=== PATIENT | female | born 1990 | race Caucasian/White ===

== ENCOUNTER 2024-07-02 01:42 | Emergency (ER) | payer OTHER, SELFPAY ==
[2024-07-02 02:32] LABS: % Basophils 0.4 % (0-2); % Eosinophils 0.6 % (0-6); % Immature Granulocytes 0.5 % (0-0.5); % Monocytes 6.1 % (1.7-9.3); % Neutrophils 87.4 % (42.2-75.2); Absolute Basophils 0.1 10^3/uL (0-0.2); Absolute Eosinophils 0.1 10^3/uL (0-0.7); Absolute Immature Granulocytes 0.1 10^3/uL (0-0.05); Absolute Lymphocytes 0.8 10^3/uL (1.2-3.4); Absolute Neutrophils 13.7 10^3/uL (1.4-6.5); Hematocrit 42.9 % (37.0-47.0); Hemoglobin 14.5 g/dL (12.0-16.0); Mean Corp Hgb Conc. 33.8 g/dL (33.0-37.0); Mean Corpuscular Hgb 27.4 pg (27.0-31.0); Mean Corpuscular Volume 81.1 fL (81.0-99.0); Mean Platelet Volume 10.5 fL (7.4-10.4); Nucleated Red Blood Cells % 0 %; Platelet Count 294 10^3/uL (130-400); Red Blood Cell Count 5.29 10^6/uL (4.20-5.40); Red Cell Dist. Width 13.5 % (11.5-14.5); White Blood Cell Count 15.7 10^3/uL (4.8-10.8)
[2024-07-02 02:34] LABS: HCG, Serum Qualitative Screen Negative
--- NOTE | 2024-07-02 02:39 | DOWNTIME ---
There was a [employer] Preparation Analyst Downtime on 07/02/2024 from 0100 to 07/02/2024 at 0205 . Downtime documentation of patient's care, including medication administrations, has been reconciled in the electronic record per guidelines. Refer to the
patient's paper chart under the miscellaneous tab to see printed paper medication records and downtime forms.
--- NOTE | 2024-07-02 02:40 | ED.GENMED ---
History of Present Illness
<Hi Payne, DO - Last Filed: 07/02/24 02:41>
General
Chief Complaint: Abdominal Pain
Source: patient
Exam Limitations: none
History of Present Illness
History of Present Illness:
See MDM
Past History
<Hi Payne, DO - Last Filed: 07/02/24 02:41>
Past History
ED Past Medical History: Other (PCOS, endometriosis)
ED Past Surgical History:
Social History
Tobacco: Non-smoker
Alcohol: Occasional
Drug: None
Personal:
Living: with family
Phy Exam
<Hi Payne, DO - Last Filed: 07/02/24 02:41>
Physical Exam
Physical Exam:
See MDM
Course
<Hi Payne, DO - Last Filed: 07/02/24 02:41>
Orders/Labs/Results
Orders:
Orders
07/02/24 01:45
Complete Blood Count/With Diff Urgent
Comprehensive Metabolic Panel Urgent
HCG, Serum Qualitative Screen Urgent
Lipase Urgent
07/02/24 02:40
US Abdomen Complete/Upper Urgent
Comment:
Reason For Exam: RUQ pain
Abnormal Lab Results
07/02/24
01:45
WBC 15.7 H 10^3/uL
(4.8-10.8)
MPV 10.5 H fL
(7.4-10.4)
Abs Immat Gran (auto) 0.1 H 10^3/uL
(0-0.05)
Absolute Neuts (auto) 13.7 H 10^3/uL
(1.4-6.5)
Absolute Lymphs (auto) 0.8 L 10^3/uL
(1.2-3.4)
Absolute Monos (auto) 1.0 H 10^3/uL
(0.1-0.6)
Neutrophils % 87.4 H %
(42.2-75.2)
Lymphocytes % 5.0 L %
(20.5-51.1)
Glucose 139 H mg/dl
(70-99)
07/02/24 01:45
07/02/24 01:45
Vital Signs
Initial and Last Documented VS:
Initial Vital Signs
Temp Pulse Resp BP Pulse Ox
98.0 F 84 16 114/70 100
07/02/24 02:49 07/02/24 02:49 07/02/24 02:49 07/02/24 02:49 07/02/24 02:49
Last Documented Vital Signs
Temp Pulse Resp BP Pulse Ox
98.0 F 84 16 114/70 100
07/02/24 02:49 07/02/24 02:49 07/02/24 02:49 07/02/24 02:49 07/02/24 02:49
Jairlt;Ventura Saxena, DO - Last Filed: 07/02/24 03:33>
Orders/Labs/Results
Orders:
Orders
07/02/24 01:45
Complete Blood Count/With Diff Urgent
Comprehensive Metabolic Panel Urgent
HCG, Serum Qualitative Screen Urgent
Lipase Urgent
07/02/24 02:40
US Abdomen Complete/Upper Urgent
Comment:
Reason For Exam: RUQ pain
Abnormal Lab Results
07/02/24
01:45
WBC 15.7 H 10^3/uL
(4.8-10.8)
MPV 10.5 H fL
(7.4-10.4)
Abs Immat Gran (auto) 0.1 H 10^3/uL
(0-0.05)
Absolute Neuts (auto) 13.7 H 10^3/uL
(1.4-6.5)
Absolute Lymphs (auto) 0.8 L 10^3/uL
(1.2-3.4)
Absolute Monos (auto) 1.0 H 10^3/uL
(0.1-0.6)
Neutrophils % 87.4 H %
(42.2-75.2)
Lymphocytes % 5.0 L %
(20.5-51.1)
Glucose 139 H mg/dl
(70-99)
07/02/24 01:45
07/02/24 01:45
Vital Signs
Initial and Last Documented VS:
Initial Vital Signs
Temp Pulse Resp BP Pulse Ox
98.0 F 84 16 114/70 100
07/02/24 02:49 07/02/24 02:49 07/02/24 02:49 07/02/24 02:49 07/02/24 02:49
Last Documented Vital Signs
Temp Pulse Resp BP Pulse Ox
98.0 F 84 16 114/70 100
07/02/24 02:49 07/02/24 02:49 07/02/24 02:49 07/02/24 02:49 07/02/24 02:49
<Hi Pyane, DO - Last Filed: 07/02/24 02:41>
MDM/Problems Addressed
Differential Diagnosis Includes:
HPI and MDM Narrative:
34 F presenting with RUQ abd pain.� Pt states she ate fast food at 7 PM and has since been dealing with worsening about pain and vomiting.� She states she was recently evaluated for similar symptoms and diagnosed with gallstones
On arrival, pt appears uncomfortable and has point tenderness to RUQ.� Given her history, will obtain RUQ US.� Pt given toradol, IVF and zofran
Physical exam
General: Mildly uncomfortable
HEENT: protecting airway
Neck: appears supple
CV: No evidence of cyanosis
Resp: No accessory muscle use
Abd: Non-distended.� Point tenderness to RUQ
Extremities: No deformities
Neuro: alert
Psych: Mildly anxious
Skin: Intact
Problems Addressed including Acute and Chronic Conditions affecting care:
1.� RUQ
Acuity:� acute
Prognosis: stable
Details: Given hx, will obtain RUQ looking for gallbladder pathology
2.� [ ]
Acuity:� acute
Prognosis: stable
Details:
3.� [ ]
Acuity:� acute
Prognosis: stable
Details:
4.� [ ]
Acuity:� acute
Prognosis: stable
Details:
5.� [ ]
Acuity:�
Prognosis:
Details:
Updates
Differential Diagnosis (but not limited to): Acute calculous cholecystitis, symptomatic cholelithiasis, pancreatitis
Testing considered: CT A/P
Drug therapy (if applicable): OTC meds, please see d/c instruction regarding Rx drugs
�����
Amount and/or Complexity of Data Reviewed
Clinical info obtained from: Patient
External data reviewed: N/A
Labs I independently reviewed (but not limited to): Mild leukocytosis
���������
Radiology:� N/A
Pulse Ox: not hypoxic
EKG independently reviewed: N/A
Automotive Warranty Administrator:� N/A
Critical Care:� N/A
Risk of Complication:
Social Determinants of health:� Good social support
Discussed with other providers:� N/A
Escalation of Care includes Admit/Obs:� After being observed in the Emergency Department,� pt stable for discharge.
Occasional wrong word or 'sound a like' substitutions may have occurred due to the inherent limitations of voice recognition software.� Read the chart carefully and recognize, using context, where substitutions have occurred.
<Ventura Saxena, DO - Last Filed: 07/02/24 03:33>
*Critical Care Note
Total Time (30-74mins, 75-104mins- exclusive of procedures): Not Applicable
<Ventura Saxena, DO - Last Filed: 07/02/24 03:33>
Update Note
Update Note:
Ultrasound abdomen complete
IMPRESSION:
No acute findings
No signs of cholelithiasis or cholecystitis
No bile duct dilation
Visualized pancreas and liver appear normal
Bilateral kidneys appear normal and are symmetric
Normal-appearing spleen
No appreciable free fluid
Discussed ultrasound findings and lab work with patient. She has no further questions. She thinks she is 'having allergic reaction' to the Toradol and Zofran she was given stating that she is now congested. She requests some Benadryl. I feel
that this is reasonable as she did not drive herself here. Patient is not having any abdominal pain at this time. We did discuss return to ER instructions. She will follow-up with general surgery as needed. Patient being discharged in much
improved condition.
ED Attending Note
<Hi Payne, DO - Last Filed: 07/02/24 02:41>
-
Portions of this chart may have been created with voice recognition software.� Occasional wrong word or��sound alike� substitutions may have occurred due to the inherent limitations of voice recognition software.
Discharge Plan
Departure
Patient Disposition: Home (Routine Discharge)
Date of Disposition: 07/02/24
Time of Disposition: 03:31
Patient with high blood pressure during this ER visit?: No
Discharge Problem:
Abdominal pain
Instructions: Nausea and Vomiting, Adult (DC), Abdominal Pain
Prescriptions:
No Action
diphenoxylate-atropine [Lomotil] 2.5-0.025 mg tablet
1 tab PO QID PRN (Reason: diarrhea) Qty: 14 0RF
ondansetron 4 mg tablet,disintegrating
4 mg PO QID PRN (Reason: nausea and vomiting) Qty: 20 0RF
Referrals:
Morgan Chambers MD [Active] - As needed
UNKNOWN - PT DOES,NOT KNOW [Unknown Provider] -
Activity Restrictions/Additional Instructions:
It was a pleasure meeting you and taking part in your care. We hope for your continued healing and wellness.
Please read discharge instructions in their entirety. However, they are for general education and may not describe your exact diagnosis at discharge. Information on your ER visit and medical conditions were discussed with you along with appropriate
follow up information...
If indicated, please take your medications as instructed and indicated on discharge paperwork.
Please schedule a follow up appointment as directed. Call to schedule an appointment
Please return to the emergency department with ANY change in, persisting, or worsening of symptoms. If any of your symptoms do not improve, or persist, or become more severe within 6-12 hours, please return to the emergency department for further
care.
Please return to the emergency department if you develop a headache, neck pain/stiffness, fever greater than 100.4F, chest pain, shortness of breath, persistent nausea, vomiting, slurred speech, difficulty walking, numbness/tingling, weakness, signs
of infection or any other symptoms that are worrisome to you.
If you have any questions or concerns please do not hesitate to call the Hospital at or E-mail me directly at [email or web address]
Interventions
Interventions:
*Risk Screen - Suicide Last Done: 07/02/24 02:49
*General Assessment Last Done: 07/02/24 02:49
*Neglect/Abuse Screening Last Done: 07/02/24 02:49
ED- Fall Risk Assessment Last Done: 07/02/24 02:49
*ED COVID-19 Vaccine History Last Done: 07/02/24 02:49
QD-Adfgkb-Cpbvxqitkv Assessment Last Done: 07/02/24 02:49
Discharge Date and Time
Print Language: MONGOLIAN
[2024-07-02 02:43] LABS: ALT (SGPT) 22 U/L (0-35); AST (SGOT) 26 U/L (14-36); Albumin 4.7 g/dl (3.5-5.0); Alkaline Phosphatase 88 U/L (38-126); Blood Urea Nitrogen 13 mg/dl (7-17); Calcium 9.5 mg/dl (8.4-10.2); Carbon Dioxide 25 mmol/L (22-30); Chloride 103 mmol/L (98-107); Glucose 139 mg/dl (70-99); Lipase 68 U/L (23-300); Potassium 4.6 mmol/L (3.5-5.1); Sodium 140 mmol/L (135-145); Total Bilirubin 0.7 mg/dl (0.2-1.3); Total Protein 7.2 g/dl (6.3-8.2); eGFR > 60.00
[2024-07-02 02:49] VITALS: BP 114/70
[2024-07-02] MEDS: BENADRYL 25 MG PO (03:35)
== END 2024-07-02 04:58 | disposition home or self-care (01) ==
LOC: EMR 01:42
PROVIDERS: EMERGENCY PHYSICIAN Student in an Organized Health Care Education/Training Program
DX: R10.11 Right upper quadrant pain (principal); E28.2 Polycystic ovarian syndrome
CPT/HCPCS: 99284; 76700; 80053; 83690; 84703; 85025

== ENCOUNTER → 2024-11-17 22:44 | Emergency (ER) | payer OTHER, SELFPAY ==
[2024-11-17 22:46] VITALS: BP 131/87
[2024-11-17 23:00] LABS: % Basophils 0.3 % (0-2); % Eosinophils 1.5 % (0-6); % Immature Granulocytes 0.5 % (0-0.5); % Lymphocytes 22.1 % (20.5-51.1); % Monocytes 7.2 % (1.7-9.3); % Neutrophils 68.4 % (42.2-75.2); Absolute Eosinophils 0.2 10^3/uL (0-0.7); Absolute Immature Granulocytes 0.1 10^3/uL (0-0.05); Absolute Lymphocytes 2.2 10^3/uL (1.2-3.4); Absolute Monocytes 0.7 10^3/uL (0.1-0.6); Absolute Neutrophils 6.7 10^3/uL (1.4-6.5); Hematocrit 43.4 % (37.0-47.0); Hemoglobin 14.6 g/dL (12.0-16.0); Mean Corp Hgb Conc. 33.6 g/dL (33.0-37.0); Mean Corpuscular Hgb 27.5 pg (27.0-31.0); Mean Corpuscular Volume 81.9 fL (81.0-99.0); Nucleated Red Blood Cells % 0 %; Platelet Count 306 10^3/uL (130-400); Red Cell Dist. Width 14.1 % (11.5-14.5); White Blood Cell Count 9.8 10^3/uL (4.8-10.8)
[2024-11-17 23:09] LABS: HCG, Serum Qualitative Screen Negative
[2024-11-17 23:31] LABS: ALT (SGPT) 17 U/L (0-35); AST (SGOT) 20 U/L (14-36); Albumin 4.6 g/dl (3.5-5.0); Alkaline Phosphatase 75 U/L (38-126); Blood Urea Nitrogen 19 mg/dl (7-17); Calcium 9.4 mg/dl (8.4-10.2); Carbon Dioxide 22 mmol/L (22-30); Chloride 106 mmol/L (98-107); Glucose 101 mg/dl (70-99); Lipase 71 U/L (23-300); Potassium 4.1 mmol/L (3.5-5.1); Sodium 137 mmol/L (135-145); Total Bilirubin 0.9 mg/dl (0.2-1.3); Total Protein 7.4 g/dl (6.3-8.2); eGFR > 60.00
[2024-11-18 01:32] VITALS: BMI 29.9
--- NOTE | 2024-11-18 02:10 | ED.GENMED ---
History of Present Illness
General
Chief Complaint: Abdominal Pain
Source: patient
Time Seen by Provider: 11/18/24 01:52
History of Present Illness
History of Present Illness:
34-year-old female presents emergency room complaining of right upper quadrant Micheal pain. Pain began about 24 hours ago. She associates the onset of the pain with a steak dinner. She has had some nausea and vomiting in addition to the right
upper quadrant abdominal pain. Patient has had similar episodes before which lasted on the order of hours. She has not had pain lasting this long. She has had C-sections before but denies any other abdominal operation.
Past History
Past History
ED Past Medical History: Other (PCOS, endometriosis)
ED Past Surgical History:
Social History
Tobacco: Non-smoker
Alcohol: Occasional
Drug: None
Personal:
Living: with family
Phy Exam
Physical Exam
Physical Exam:
General: Awake, Alert, Oriented X3. Appears mildly uncomfortable
Vitals: unremarkable
Head: Atraumatic
Eyes: Pupils equal, EOMI
Throat: Airway intact, no exudates
Neck: Trachea midline
Lungs: Clear and equal b/l
Heart: Regular rate, no murmurs
Abd: Soft, tenderness to palpation right upper quadrant, no pulsatile mass
Neuro: Nonfocal
Skin: Warm, dry, no rash
Extremities: pulses equal b/l, no edema
Course
Orders/Labs/Results
Orders:
Orders
11/17/24 22:49
Test Result ONCE
11/17/24 22:53
Complete Blood Count/With Diff Urgent
Comprehensive Metabolic Panel Urgent
HCG, Serum Qualitative Screen Urgent
Lipase Urgent
11/18/24 02:09
0.9% Sodium Chloride 500 ml [Nss] 500 ml IV BOLUS
HYDROmorphone [Dilaudid] 0.5 mg IV NOW STA
Ondansetron Injectable [Zofran] 4 mg IV NOW STA
11/18/24 02:10
CT Abd/pelvis W Iv Cont Urgent
Comment:
Reason For Exam: upper abd pain
11/18/24 03:16
Lactic Acid Urgent
Abnormal Lab Results
11/17/24
22:53
Abs Immat Gran (auto) 0.1 H 10^3/uL
(0-0.05)
Absolute Neuts (auto) 6.7 H 10^3/uL
(1.4-6.5)
Absolute Monos (auto) 0.7 H 10^3/uL
(0.1-0.6)
BUN 19 H mg/dl
(7-17)
Glucose 101 H mg/dl
(70-99)
11/17/24 22:53
11/17/24 22:53
Vital Signs
Initial and Last Documented VS:
Initial Vital Signs
Temp Pulse Resp BP Pulse Ox
97.9 F 81 16 131/87 98
11/17/24 22:46 11/17/24 22:46 11/17/24 22:46 11/17/24 22:46 11/17/24 22:46
Last Documented Vital Signs
Temp Pulse Resp BP Pulse Ox
97.9 F 73 17 104/68 98
11/17/24 22:46 11/18/24 04:00 11/18/24 04:00 11/18/24 04:00 11/18/24 04:00
MDM/Problems Addressed
Differential Diagnosis Includes:
Acute cholecystitis, Lilly lithiasis, gastritis, appendicitis
MDM/Problems Addressed:
Patient presents with right-sided abdominal pain and some diarrhea. Labs are reassuring. A CT of the abdomen and pelvis was performed as the patient has had 2 ultrasounds in the recent past which showed no stones and no inflammation of the
gallbladder. CT shows inflammatory changes at the distal ileum and proximal colon. Patient reinterviewed about signs of inflammatory bowel disease. She does not have frequent diarrhea. She does not have bloody stools. She may occasionally have
mucousy stools. No weight loss. Unclear if this CT finding truly represents inflammatory bowel disease or is related to a more acute infectious process. Will cover with Cipro. Will have her follow-up with GI. I did send a message to the GI
front desk receptionist to see if she could get a appointment in the next couple weeks.
*Radiology
Radiology exam reviewed: preliminary read by ED provider ([facility] report reviewed)
*Pulse Oximetry
Patient hypoxic: no
*Critical Care Note
Total Time (30-74mins, 75-104mins- exclusive of procedures): Not Applicable
ED Attending Note
-
Portions of this chart may have been created with voice recognition software.� Occasional wrong word or��sound alike� substitutions may have occurred due to the inherent limitations of voice recognition software.
Discharge Plan
Departure
Patient Disposition: Home (Routine Discharge)
Date of Disposition: 11/18/24
Time of Disposition: 04:14
Patient with high blood pressure during this ER visit?: No
Condition: Good
Discharge Problem:
Abdominal pain, Ileitis, terminal
Instructions: Crohn disease in adults, Abdominal Pain
Prescriptions:
New
ciprofloxacin HCl 500 mg tablet
500 mg PO BID Qty: 10 0RF
dicyclomine 20 mg tablet
20 mg PO QID PRN (Reason: abdominal pain) Qty: 20 0RF
No Action
diphenoxylate-atropine [Lomotil] 2.5-0.025 mg tablet
1 tab PO QID PRN (Reason: diarrhea) Qty: 14 0RF
ondansetron 4 mg tablet,disintegrating
4 mg PO QID PRN (Reason: nausea and vomiting) Qty: 20 0RF
Referrals:
Ger Domínguez MD [Active, Gastroenterology]
NONE,* [Family Provider, Internal Medicine]
Activity Restrictions/Additional Instructions:
Your CT scan shows some inflammation in part of her small and large intestine. This could be from a GI bug but could also be a sign of a inflammatory bowel disease. I have given you contact information for inside sales coordinator here at [facility].
You also should follow-up with your primary care doctor. Return to the emergency room if your pain is getting worse, you are not able to tolerate oral intake refill you are doing poorly
Interventions
Interventions:
*Risk Screen - Suicide Last Done: 11/17/24 22:46
*General Assessment Last Done: 11/17/24 22:46
*Neglect/Abuse Screening Last Done: 11/17/24 22:46
*ED- Fall Risk Assessment Last Done: 11/17/24 22:46
*ED COVID-19 Vaccine History Last Done: 11/17/24 22:46
*Nursing Disposition Last Done: 11/18/24 04:00
CT-Lznocn-Auzvjobcpv Assessment Last Done: 11/18/24 01:31
Discharge Date and Time
Print Language: CAMEROONIAN
[2024-11-18] MEDS: NSS 500 IV (02:26)
[2024-11-18] MEDS: DILAUDID 0.5 MG IV (02:26)
[2024-11-18] MEDS: ZOFRAN 4 MG IV (02:26)
[2024-11-18 02:54] VITALS: BP 112/72
[2024-11-18 03:00] VITALS: BP 107/74
[2024-11-18 03:50] LABS: Lactic Acid 0.9 mmol/L (0.7-2.0)
[2024-11-18 04:00] VITALS: BP 104/68; BP 104/70
== END | disposition home or self-care (01) ==
LOC: EMR 22:44
PROVIDERS: EMERGENCY PHYSICIAN Emergency Medicine
DX: K50.00 Crohn's disease of small intestine without complications (principal); R11.2 Nausea with vomiting, unspecified
CPT/HCPCS: 96374; 96375; 96361; 99284; 74177; 80053; 83605; 83690; 84703; 85025; Q9967